=== PATIENT | female | born 1995 | race American Indian/Alaskan Native ===

== ENCOUNTER 2018-08-27 21:40 | Emergency (ER) | payer SELFPAY ==
[2018-08-27 22:00] VITALS: BP 137/85; PULSE 86; RESP 20; TEMP 99.1; O2SAT 100
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
== END 2018-08-28 00:26 | disposition home or self-care (01) ==
LOC: C.ER 21:40
DX: S80.01XA Contusion of right knee, initial encounter (principal); V18.0XXA Pedal cycle driver injured in noncollision transport accident in nontraffic accident, initial encounter; Y93.55 Activity, bike riding; M25.561 Pain in right knee; M54.5 Low back pain